=== PATIENT | female | born 2000 | race Caucasian/White ===

== ENCOUNTER 2018-09-19 11:45 | Emergency (ER) | payer OTHER ==
[~2018-09-19] VITALS: Ht 149.9 cm; Wt 51.3 kg
[2018-09-19] MEDS ORDERED: PRENATAL 19 TA1 EACH (12:14)
== END 2018-09-19 17:52 | disposition home or self-care (01) ==
LOC: ER 11:45
DX: O21.8 Other vomiting complicating pregnancy (principal); Z34.01 Encounter for supervision of normal first pregnancy, first trimester

== ENCOUNTER 2018-09-22 17:34 | Emergency (ER) | payer OTHER ==
[~2018-09-22] VITALS: Ht 149.9 cm; Wt 49.9 kg
[~2018-09-22 17:34] MED LIST: PRENATAL 19 TA1 EACH
== END 2018-09-22 21:45 | disposition home or self-care (01) ==
LOC: ER 17:34
DX: O26.891 Other specified pregnancy related conditions, first trimester (principal); J10.1 Influenza due to other identified influenza virus with other respiratory manifestations

== ENCOUNTER 2019-02-24 20:40 | Inpatient (IN) | payer OTHER ==
[~2019-02-24] VITALS: Ht 149.9 cm; Wt 59.0 kg
[2019-02-28] MEDS ORDERED: MACROBID 100 M100 MG PO (08:51)
== END 2019-02-28 10:55 | disposition home or self-care (01) | DRG 833 ==
LOC: OB/GYN 20:40 → LDR 20:40 → OB/GYN 02-25 20:27
PROVIDERS: ADMIT Obstetrics & Gynecology
PROC: 4A0HXFZ Measurement of Products of Conception, Cardiac Rhythm, External Approach (ICD-10-PCS; principal; 2019-02-24)
DX: O23.33 Infections of other parts of urinary tract in pregnancy, third trimester (principal); R10.823 Right lower quadrant rebound abdominal tenderness; Z3A.29 29 weeks gestation of pregnancy

== ENCOUNTER 2019-04-29 17:19 | Inpatient (IN) | payer OTHER ==
[~2019-04-29] VITALS: Ht 154.9 cm; Wt 62.6 kg
[~2019-04-29 17:19] MED LIST changes: +MACROBID 100 M100 MG PO
== END 2019-05-02 11:25 | disposition home or self-care (01) | DRG 807 ==
LOC: LDR 17:19 → OB/GYN 04-30 19:17
PROVIDERS: ADMIT Obstetrics & Gynecology
PROC: 3E0P7VZ Introduction of Hormone into Female Reproductive, Via Natural or Artificial Opening (ICD-10-PCS; 2019-04-29)
PROC: 4A1HXCZ Monitoring of Products of Conception, Cardiac Rate, External Approach (ICD-10-PCS; 2019-04-29)
PROC: 10E0XZZ Delivery of Products of Conception, External Approach (ICD-10-PCS; principal; 2019-04-30)
PROC: 0KQM0ZZ Repair Perineum Muscle, Open Approach (ICD-10-PCS; 2019-04-30)
PROC: 3E033VJ Introduction of Other Hormone into Peripheral Vein, Percutaneous Approach (ICD-10-PCS; 2019-04-30)
PROC: 10907ZC Drainage of Amniotic Fluid, Therapeutic from Products of Conception, Via Natural or Artificial Opening (ICD-10-PCS; 2019-04-30)
DX: O70.1 Second degree perineal laceration during delivery (principal); Z37.0 Single live birth; Z3A.38 38 weeks gestation of pregnancy

== ENCOUNTER 2021-09-08 08:24 | Outpatient (CLI) | payer OTHER | END 2021-09-08 09:16 | disposition home or self-care (01) | LOC: PRENATAL 08:24 | PROVIDERS: ATTEND Obstetrics & Gynecology Maternal & Fetal Medicine | DX: O35.0XX1 Maternal care for (suspected) central nervous system malformation in fetus, fetus 1 (principal); O35.3XX1 Maternal care for (suspected) damage to fetus from viral disease in mother, fetus 1; O98.512 Other viral diseases complicating pregnancy, second trimester; O44.02 Complete placenta previa NOS or without hemorrhage, second trimester; Z36.89 Encounter for other specified antenatal screening; Z3A.21 21 weeks gestation of pregnancy ==

== ENCOUNTER 2021-11-17 09:01 | Outpatient (CLI) | payer OTHER | END 2021-11-17 11:04 | disposition home or self-care (01) | LOC: PRENATAL 09:01 | PROVIDERS: ATTEND Obstetrics & Gynecology Maternal & Fetal Medicine | DX: O26.849 Uterine size-date discrepancy, unspecified trimester (principal); O44.00 Complete placenta previa NOS or without hemorrhage, unspecified trimester; O36.8199 Decreased fetal movements, unspecified trimester, other fetus ==